=== PATIENT | male | born 1995 | race Caucasian/White ===

== ENCOUNTER 2019-05-30 15:46 | Emergency (ER) | payer BC ==
[2019-05-30 15:56] VITALS: BP 142/73
[2019-05-30] MEDS ORDERED: MAG HYDROX/AL HYDROX/SIMETH 30 ML UDC PO STA (15:59)
[2019-05-30] MEDS ORDERED: FAMOTIDINE 20 MG TABLET PO STA (15:59)
[2019-05-30] MEDS ORDERED: LIDOCAINE VISCOUS 2% 15 ML UDC MM STA (15:59)
--- NOTE | 2019-05-30 16:02 | ED Physician Documentation ---
PD HPI HEENT - Stated complaint Stated Complaint: DIFFICULTY SWALLOWING - Chief complaint Chief Complaint: Heent - History obtained from History obtained from: Patient - History of Present Illness Timing - onset: Yesterday (2 nights ago he felt like he ate too much. He has a history of GERD. He self-induced vomiting and since then feels like either his throat is inflamed or something stuck there. He is able to eat and drink but is she is feeling a lot of acid now.) Review of Systems Constitutional: denies: Fever, Fatigue Nose: denies: Rhinorrhea / runny nose, Congestion Cardiac: denies: Chest pain / pressure, Palpitations Respiratory: denies: Dyspnea, Cough PD PAST MEDICAL HISTORY - Past Medical History Past Medical History: No - Past Surgical History Past Surgical History: No - Present Medications Home Medications: Ambulatory Orders Medication Instructions Recorded Confirmed Famotidine [Pepcid] 20 mg PO BID #60 tablet 05/30/19 - Allergies Allergies/Adverse Reactions: Allergies Allergy/AdvReac Type Severity Reaction Status Date / Time No Known Drug Allergies Allergy Verified 05/30/19 15:55 - Social History Does the pt smoke?: No Smoking Status: Never smoker Does the pt drink ETOH?: Yes Does the pt have substance abuse?: No Substance Use and Type: Marijuana - Immunizations Immunizations are current?: No - POLST Patient has POLST: No PD ED PE NORMAL - Vitals Vital signs reviewed: Yes - General General: Alert and oriented X 3, No acute distress - HEENT HEENT: Other (Visualized portions of the oropharynx are mildly red but without any swelling. There is some cobblestoning of the retropharynx.) - Neck Neck: Supple, no meningeal sign, No bony TTP - Neuro Neuro: Alert and oriented X 3, Normal speech Results - Vitals Vitals: Vital Signs - 24 hr 05/30/19 15:49 Temperature 36.9 C Heart Rate 63 Respiratory 16 Rate Blood Pressure 142/73 H O2 Saturation 100 Oxygen O2 Source Room air - Rads (name of study) neck XR Radiology: EMP read contemporaneously (normal) PD MEDICAL DECISION MAKING - ED course ED course: 23-year-old man with foreign body sensation in his throat, started after vomiting and he has a history of GERD so it actually sounds more like reflux and esophagitis than anything else. He was symptom-free after a GI cocktail and treated with Pepcid. Departure - Departure Disposition: 01 Home, Self Care Clinical Impression: GERD (gastroesophageal reflux disease) Qualifiers: Esophagitis presence: with esophagitis Qualified Code(s): K21.0 - Gastro- esophageal reflux disease with esophagitis Condition: Good Record reviewed to determine appropriate education?: Yes Instructions: GERD Dc Prescriptions: Famotidine [Pepcid] 20 mg PO BID #60 tablet Comments: Call your doctor to arrange a follow-up appointment, make the next available appointment. In the interim, return anytime if worse or if new symptoms develop. Discharge Date/Time: 05/30/19 16:29
--- NOTE | 2019-05-30 16:41 | XRAY Report ---
Reason: FB sensation throat Procedure Date: 05/30/2019 Accession Number: [id number] / [id number] Procedure: XR - Neck Soft Tissue CPT Code: Final Report FULL RESULT: EXAM: SOFT TISSUE NECK RADIOGRAPHY EXAM DATE: 05/30/2019 04:16 PM. CLINICAL HISTORY: FB sensation throat. Foreign body sensation in the throat. Vomiting and feels like something is stuck around C4. COMPARISONS: None. TECHNIQUE: 2 views. FINDINGS: Soft Tissues: No prevertebral soft tissue swelling. The epiglottis and aryepiglottic folds are unremarkable. No tonsillar or adenoidal enlargement. No radiopaque foreign body. Regional Skeleton: Unremarkable for age. Other: The visualized lung apices are clear. IMPRESSION: Normal soft tissue neck radiography. [facility]
== END 2019-05-30 16:29 | disposition home or self-care (01) ==
LOC: ED 15:46
DX: K21.0 Gastro-esophageal reflux disease with esophagitis (principal)
CPT/HCPCS: 70360; 99283; A9270

== ENCOUNTER 2020-03-14 17:46 | Outpatient (CLI) | payer BC | END 2020-03-14 17:47 | disposition home or self-care (01) | LOC: COV 17:46 | PROVIDERS: ATTEND Family Medicine | DX: Z20.828 Contact with and (suspected) exposure to other viral communicable diseases (principal) ==